=== PATIENT | male | born 1935 | race Caucasian/White ===

== ENCOUNTER 2020-09-01 17:57 | Emergency (ER) | payer OTHER ==
[~2020-09-01] VITALS: Ht 162.6 cm; Wt 64.0 kg
[2020-09-01] MEDS ORDERED: TRAMADOL HYDROC50 MG PO (21:31)
[2020-09-01 21:38] VITALS: BP 152/70
== END 2020-09-01 21:49 | disposition home or self-care (01) | DRG 563 ==
LOC: ED 17:57
DX: S42.032A Displaced fracture of lateral end of left clavicle, initial encounter for closed fracture (principal); S20.212A Contusion of left front wall of thorax, initial encounter; W01.0XXA Fall on same level from slipping, tripping and stumbling without subsequent striking against object, initial encounter; Y92.009 Unspecified place in unspecified non-institutional (private) residence as the place of occurrence of the external cause

== ENCOUNTER 2020-09-04 08:31 | Emergency (ER) | payer OTHER ==
[~2020-09-04] VITALS: Ht 162.6 cm; Wt 65.9 kg
[~2020-09-04 08:31] MED LIST: TRAMADOL HYDROC50 MG PO
[2020-09-04] MEDS ORDERED: ATENOLOL25 MG PO (09:00)
[2020-09-04] MEDS ORDERED: ASPIRIN ENTERIC81 MG PO (09:00)
[2020-09-04] MEDS ORDERED: DONEPEZIL HCL10 M1 PO (09:01)
[2020-09-04] MEDS ORDERED: FINASTERIDE5 MG PO (09:02)
[2020-09-04] MEDS ORDERED: LORATADINE10 M1 PO (09:02)
[2020-09-04] MEDS ORDERED: SIMVASTATIN10 MG PO (09:03)
[2020-09-04] MEDS ORDERED: TERAZOSIN5 MG PO (09:04)
[2020-09-04] MEDS ORDERED: WARFARIN5 MG PO (09:04)
[2020-09-04] MEDS ORDERED: TRAMADOL HYDROC50 M1 PO (09:05)
[2020-09-04 09:48] LABS: HEMATOCRIT 39.7 % (39.0-50.0); HEMOGLOBIN 12.3 g/dl (14.0-18.0); IMMATURE GRANULOCYTES 0.2 % (0.0-5.0); MEAN CELL VOLUME 95.4 fL CALC (80.0-100.0); MEAN CORPUSCULAR HGB 29.6 pG CALC (26.0-32.0); NEUT# 7.21 thou/uL (1.82-7.42); RED BLOOD COUNT 4.16 mill/uL (4.70-6.10); RED CELL DISTRI WIDTH 14.3 % (11.5-15.5)
[2020-09-04 10:01] LABS: ALKALINE PHOSPHATASE 56 u/l (38-126); AMYLASE 53 u/l (30-110); ANION GAP 10 (6-22 (CALC)); BILIRUBIN, TOTAL 0.8 mg/dL (0.0-1.4); BUN 26 mg/dL (8-23); BUN/CREATININE RATIO 23 (12-20 (CALC)); CARBON DIOXIDE 26 mmol/l (22-30); CHLORIDE 103 mmol/l (95-108); CREATININE 1.1 mg/dL (0.7-1.3); GFR > 60 ML/MIN (>=60 (CALC)); GFR FOR AFR.AMER. > 60 ML/MIN (>=60 (CALC)); LIPASE 38 u/l (23-300); POTASSIUM 3.9 mmol/l (3.5-5.1); SGOT/AST 27 u/l (19-48); SODIUM 134 mmol/l (137-146); TOTAL PROTEIN 6.6 g/dL (6.3-8.2)
[2020-09-04] MEDS ORDERED: TAM75CAP PO (12:19)
[2020-09-04] MEDS ORDERED: ZITHROMAX250 MG PO (12:19)
[2020-09-04 12:46] VITALS: BP 122/58
--- NOTE | 2020-09-06 09:12 | NUR ---
BLOOD CULTURE RESULTS CALLED . / VIALS GROWING GRAM (+) COCCI. GIVEN THE PATIENTS SYMPTOMS AND LABS WOULD LIKE TO WAIT FOR THE FINAL RESULTS.
--- NOTE | 2020-09-07 11:03 | NUR ---
FINAL BLOOD CULTURE RESULTS OF STAPH HOMINIS GROWING IN 4/[address] ALLEN. MOST LIKELY A CONTAMINANT.
== END 2020-09-04 13:10 | disposition home or self-care (01) | DRG 562 ==
LOC: ED 08:31
DX: S42.032A Displaced fracture of lateral end of left clavicle, initial encounter for closed fracture (principal); J10.00 Influenza due to other identified influenza virus with unspecified type of pneumonia; M54.2 Cervicalgia; M25.552 Pain in left hip; I10 Essential (primary) hypertension; W19.XXXA Unspecified fall, initial encounter; Z20.822 Contact with and (suspected) exposure to COVID-19

== ENCOUNTER 2021-12-23 03:38 | Emergency (ER) | payer OTHER ==
[~2021-12-23] VITALS: Ht 162.6 cm; Wt 72.0 kg
[~2021-12-23 03:38] MED LIST changes: +ASPIRIN ENTERIC81 MG PO; +ATENOLOL25 MG PO; +DONEPEZIL HCL10 M1 PO; +FINASTERIDE5 MG PO; +LORATADINE10 M1 PO; +SIMVASTATIN10 MG PO; +TAM75CAP PO; +TERAZOSIN5 MG PO; +TRAMADOL HYDROC50 M1 PO; +WARFARIN5 MG PO; +ZITHROMAX250 MG PO
[2021-12-23] MEDS ORDERED: MEMANTINE HYDRO10 MG (04:13)
[2021-12-23] MEDS ORDERED: AQUABASE EX (04:14)
[2021-12-23] MEDS ORDERED: TAMSULOSIN HCL0.4 MG PO (04:17)
[2021-12-23] MEDS ORDERED: CALCIUM 600600 M1 (04:19)
[2021-12-23] MEDS ORDERED: B-12500 MC2 (04:20)
[2021-12-23 05:09] LABS: HEMATOCRIT 40.9 % (39.0-50.0); HEMOGLOBIN 13.2 g/dl (14.0-18.0); IMMATURE GRANULOCYTES 0.2 % (0.0-5.0); MEAN CELL VOLUME 92.7 fL CALC (80.0-100.0); MEAN CORPUSCULAR HGB 29.9 pG CALC (26.0-32.0); MEAN CORPUSCULAR HGB CONC 32.3 g/dL CAL (32.0-36.0); NEUT# 9.56 thou/uL (1.82-7.42); RED BLOOD COUNT 4.41 mill/uL (4.70-6.10); RED CELL DISTRI WIDTH 12.7 % (11.5-15.5)
[2021-12-23 05:25] LABS: URINE BILIRUBIN - DIPSTICK NEGATIVE (NEGATIVE); URINE BLOOD DIPSTICK MODERATE (NEGATIVE); URINE COLOR YELLOW; URINE GLUCOSE - DIPSTICK NEGATIVE (NEGATIVE); URINE KETONE 15 mg/dL (NEGATIVE); URINE LEUK ESTERASE NEGATIVE (NEGATIVE); URINE PH 5.5 (4.5-8.0); URINE PROTEIN - DIPSTICK NEGATIVE (NEG-TRACE); URINE SPECIFIC GRAVITY 1.025; URINE UROBILINOGEN - DIPSTICK 0.2 E.U./dL (0.2)
[2021-12-23 05:26] LABS: INTERNATIONAL NORMALIZED RATIO 4.1 RATIO (0.7-1.3); PROTHROMBIN TIME 39.3 SECONDS (9.0-12.5)
[2021-12-23 05:28] LABS: URINE NITRITE - DIPSTICK NEGATIVE (Negative)
[2021-12-23 05:30] LABS: ALKALINE PHOSPHATASE 72 u/l (38-126); ANION GAP 13 (6-22 (CALC)); BILIRUBIN, TOTAL 0.6 mg/dL (0.0-1.4); BUN 24 mg/dL (8-23); BUN/CREATININE RATIO 20 (12-20 (CALC)); CARBON DIOXIDE 23 mmol/l (22-30); CHLORIDE 106 mmol/l (95-108); CPK 164 u/l (52-200); CREATININE 1.2 mg/dL (0.7-1.3); GFR 57 ML/MIN (>=60 (CALC)); GFR FOR AFR.AMER. > 60 ML/MIN (>=60 (CALC)); MAGNESIUM 2.1 mg/dL (1.6-2.3); POTASSIUM 4.3 mmol/l (3.5-5.1); SGOT/AST 32 u/l (19-48); SODIUM 138 mmol/l (137-146); TOTAL PROTEIN 6.8 g/dL (6.3-8.2)
[2021-12-23 05:36] LABS: URINE SQUAMOUS EPITHELIAL CELL FEW EPI/hpf (0-FEW)
[2021-12-23] MEDS ORDERED: TRAMADOL HCL50 MG PO (06:11)
[2021-12-23 06:25] VITALS: BP 135/66
== END 2021-12-23 06:25 | disposition home or self-care (01) | DRG 999 ==
LOC: ED 03:38
PROVIDERS: Family Medicine
DX: S42.102A Fracture of unspecified part of scapula, left shoulder, initial encounter for closed fracture (principal); S22.32XA Fracture of one rib, left side, initial encounter for closed fracture; S50.12XA Contusion of left forearm, initial encounter; S50.312A Abrasion of left elbow, initial encounter; F03.90 Unspecified dementia, unspecified severity, without behavioral disturbance, psychotic disturbance, mood disturbance, and anxiety; I10 Essential (primary) hypertension; E78.00 Pure hypercholesterolemia, unspecified; W06.XXXA Fall from bed, initial encounter; Y92.003 Bedroom of unspecified non-institutional (private) residence as the place of occurrence of the external cause; Z79.01 Long term (current) use of anticoagulants

== ENCOUNTER 2021-12-25 04:23 | Emergency (ER) | payer OTHER ==
[~2021-12-25] VITALS: Ht 162.6 cm; Wt 82.0 kg
[~2021-12-25 04:23] MED LIST changes: +AQUABASE EX; +B-12500 MC2; +CALCIUM 600600 M1; +MEMANTINE HYDRO10 MG; +TAMSULOSIN HCL0.4 MG PO; +TRAMADOL HCL50 MG PO
[2021-12-25 04:26] VITALS: BP 147/76
[2021-12-25 04:30] VITALS: BP 146/71
[2021-12-25] MEDS ORDERED: LORTAB5 PO (04:41)
[2021-12-25] MEDS ORDERED: MIRALAX17 GM PO (04:41)
[2021-12-25 04:45] VITALS: BP 146/71
== END 2021-12-25 05:00 | disposition home or self-care (01) | DRG 561 ==
LOC: ED 04:23
DX: S22.32XD Fracture of one rib, left side, subsequent encounter for fracture with routine healing (principal); S42.102D Fracture of unspecified part of scapula, left shoulder, subsequent encounter for fracture with routine healing; T14.8XXD Other injury of unspecified body region, subsequent encounter; I10 Essential (primary) hypertension; E78.00 Pure hypercholesterolemia, unspecified; F03.90 Unspecified dementia, unspecified severity, without behavioral disturbance, psychotic disturbance, mood disturbance, and anxiety; W19.XXXD Unspecified fall, subsequent encounter; Z95.0 Presence of cardiac pacemaker

== ENCOUNTER 2022-03-07 13:41 | Inpatient (IN) | payer OTHER, MEDICARE ==
[2022-03-07] VITALS (17 sets, daily range): BP systolic 92–125; BP diastolic 49–89
[~2022-03-07] VITALS: Ht 162.6 cm; Wt 68.0 kg
[~2022-03-07 13:41] MED LIST changes: -B-12500 MC2; +B-12500 MC2 PO; -CALCIUM 600600 M1; +CALCIUM 600600 M1 PO; +LORTAB5 PO; -MEMANTINE HYDRO10 MG; +MEMANTINE HYDRO10 MG PO; +MIRALAX17 GM PO; -SIMVASTATIN10 MG PO; +SIMVASTATIN40 MG PO
--- NOTE | 2022-03-07 13:43 | NUR ---
PT TO ROOM VIA WC. FAMILY AT BEDSIDE
[2022-03-07 14:30] LABS: HEMOGLOBIN 13.3 g/dl (14.0-18.0); IMMATURE GRANULOCYTES 0.2 % (0.0-5.0); MEAN CELL VOLUME 95.9 fL CALC (80.0-100.0); MEAN CORPUSCULAR HGB 30.4 pG CALC (26.0-32.0); MEAN CORPUSCULAR HGB CONC 31.7 g/dL CAL (32.0-36.0); RED BLOOD COUNT 4.38 mill/uL (4.70-6.10); RED CELL DISTRI WIDTH 13.9 % (11.5-15.5)
[2022-03-07 14:31] LABS: URINE BLOOD DIPSTICK MODERATE (NEGATIVE); URINE COLOR YELLOW; URINE GLUCOSE - DIPSTICK NEGATIVE (NEGATIVE); URINE KETONE NEGATIVE (NEGATIVE); URINE LEUK ESTERASE NEGATIVE (NEGATIVE); URINE PROTEIN - DIPSTICK NEGATIVE (NEG-TRACE); URINE SPECIFIC GRAVITY >=1.030; URINE UROBILINOGEN - DIPSTICK 0.2 E.U./dL (0.2)
[2022-03-07 14:34] LABS: URINE BILIRUBIN - DIPSTICK SMALL (NEGATIVE); URINE NITRITE - DIPSTICK NEGATIVE (Negative)
[2022-03-07 15:00] LABS: INTERNATIONAL NORMALIZED RATIO 2.1 RATIO (0.7-1.3); PROTHROMBIN TIME 21.3 SECONDS (9.0-12.5)
[2022-03-07 15:02] LABS: ALBUMIN 3.9 g/dL (3.2-5.0); BILIRUBIN, TOTAL 0.7 mg/dL (0.0-1.4); CREATININE 1.5 mg/dL (0.7-1.3); POTASSIUM 4.5 mmol/l (3.5-5.1); TOTAL PROTEIN 6.7 g/dL (6.3-8.2)
[2022-03-07] MEDS ORDERED: WARFARIN SODIU2.5 MG PO (15:36)
--- NOTE | 2022-03-07 17:54 | NUR ---
Pt was stable in the ER and did not have any complaints. The patient's nephew was with him in the ER and went with him to the floor. Bedside report given. Pt stable. Chart dropped off, tele on pt. Oxygen connected.
--- NOTE | 2022-03-07 18:46 | NUR ---
PT ORINETED TO ROOM. PT NEPHEW ABLE TO ANSWER QUESTIONS PT DEMENTIA. A/OX2 ASSESSMENT AND VS COMPLETED. HEART RHYHM ON TELE RESPIRATION UNLABORED. BOWEL SOUNDS HYPOACTIVE. IV SITE NOTED. PT ATE PUDDING . PT DEMONOSTRATED HOW TO USE CALL LIGHT DENIES ADDITIONAL NEEDS ALLS AFETY PRECAUTIONS IN PLACE.
--- NOTE | 2022-03-07 19:15 | NUR ---
PATIENT RESTING IN BED. NO DISTRESS NOTED. ALERT TO PERSON AND PLACE. VSS. SUPPLEMENTAL O2 IN PLACE VIA NC @ 2LPM. FALL PRECAUTIONS IN PLACE CALL HUDSON WITHIN REACH.
[2022-03-08] VITALS (8 sets, daily range): BP systolic 96–130; BP diastolic 55–83
--- NOTE | 2022-03-08 04:03 | NUR ---
ALERTD BY ED [employer] TECH THAT PATIENT HAD A CHANGE IN RYTHMN FROM PACED NSR TO PACED ST. PATIENT RESTING IN BED.NO CHANGE IN MENTATION. NO DISTRESS NOTED. PATIENT DENIES ANY PAIN OR DISCOMFORT. FALL PRECAUTIONS IN PLACE. BED ALARM MAINTAINED. CALL HUDSON WITHIN REACH.
[2022-03-08 06:28] LABS: HEMATOCRIT 39.5 % (39.0-50.0); HEMOGLOBIN 12.6 g/dl (14.0-18.0); MEAN CELL VOLUME 94.5 fL CALC (80.0-100.0); MEAN CORPUSCULAR HGB 30.1 pG CALC (26.0-32.0); MEAN CORPUSCULAR HGB CONC 31.9 g/dL CAL (32.0-36.0); NEUT# 2.02 thou/uL (1.82-7.42); RED BLOOD COUNT 4.18 mill/uL (4.70-6.10); RED CELL DISTRI WIDTH 13.5 % (11.5-15.5)
[2022-03-08 07:14] LABS: ALBUMIN 3.3 g/dL (3.2-5.0); ALKALINE PHOSPHATASE 50 u/l (38-126); ANION GAP 11 (6-22 (CALC)); BUN 22 mg/dL (8-23); BUN/CREATININE RATIO 18 (12-20 (CALC)); C-REACTIVE PROTEIN 0.6 mg/dL (0-0.9); CARBON DIOXIDE 25 mmol/l (22-30); CHLORIDE 108 mmol/l (95-108); CREATININE 1.2 mg/dL (0.7-1.3); GFR FOR AFR.AMER. > 60 ML/MIN (>=60 (CALC)); GFR OTHER RACES 57 ML/MIN (>=60 (CALC)); POTASSIUM 4.4 mmol/l (3.5-5.1); SGOT/AST 28 u/l (19-48); SODIUM 140 mmol/l (137-146); TOTAL PROTEIN 5.7 g/dL (6.3-8.2)
[2022-03-08 07:16] LABS: BILIRUBIN, TOTAL 0.3 mg/dL (0.0-1.4)
--- NOTE | 2022-03-08 08:43 | NUR ---
PT RESTING IN FOWLERS POSITION. A/OX3 HARD OF HEARING ASSESSNENT AND VS COMPLETED,HEART RHYHTM ST ON TELE .PACER. RESPIRATIONS UNLABORED. PT BOWEL SOUNDS ACTIVE. IV SITE NOTED. PT DENIES ADDITIONAL NEEDS AT THE TIME ALL SAFETY PRECAUTIONS IN PLACE. MONITOR BP AND HR.
[2022-03-08] MEDS ORDERED: ALLERGY RELF10 M3 PO (09:01)
--- NOTE | 2022-03-08 10:22 | NUR ---
PT SPSIS RISK ON INTERVENTIONS [place] NOTIFIED PT IS ON FLUIDS AND RECIEVED ANTIBITOICS DOWN STAIRS IN ER. WILL RECIEVE MORE PER EMAR.
--- NOTE | 2022-03-08 12:11 | NUR ---
PT RESTING IN HIGH FOWLERS POSITION. PT TOLERATING FOOD WELL OFF OXYGEN . RA SATS MID 90'S
[2022-03-08 12:50] LABS: INTERNATIONAL NORMALIZED RATIO 2.2 RATIO (0.7-1.3); PROTHROMBIN TIME 22.3 SECONDS (9.0-12.5)
--- NOTE | 2022-03-08 16:06 | NUR ---
PT SHOWS NO SIGNS OF DISTRESS. PT RESTING IN HIGH FOWLERS POSITON. PT DENIES ADDITIONAL NEEDS.
--- NOTE | 2022-03-08 19:49 | NUR ---
PATIENT RESTING IN BED. ALERT AND ORIENTED TO PERSON AND PLACE. NO DISTRESS NOTED. PATIENT DENIES ANY PAIN AND/OR DISCOMFORT AT THIS TIME. HEAD TO TOE ASSESSMENT COMPLETED; SEE DOCUMENTATION. CALL HUDSON USE AND FALL PRECAUTION EDUCATION REEINFORCED. BED ALARM MAINTAINED.
--- NOTE | 2022-03-08 22:31 | NUR ---
ROOM AIR SPO2 92%
--- NOTE | 2022-03-08 23:15 | NUR ---
ROOM AIR SPO2 92% WITH CONTINUOUS PULXE OX IN PLACE
[2022-03-09] VITALS (8 sets, daily range): BP systolic 128–152; BP diastolic 66–74
--- NOTE | 2022-03-09 00:37 | NUR ---
PATIENT OBSERVED SLEEPING. NO DISTRESS NOTED. BED ALARM MAINTAINED. FALL PRECAUTIONS IN PLACE. CALL HUDSON WITHIN REACH.
--- NOTE | 2022-03-09 04:46 | NUR ---
PATIENT RESTING IN BED. NO DISTRESS NOTED. NO COMPLAINTS AND/OR DISCOMFORT AT THIS TIME. BED ALARM IN PLACE. FALL PRECAUTIONS MAINTAINED. CALL HUDSON WITHIN REACH.
[2022-03-09 06:25] LABS: HEMATOCRIT 40.4 % (39.0-50.0); HEMOGLOBIN 13.1 g/dl (14.0-18.0); IMMATURE GRANULOCYTES 0.2 % (0.0-5.0); MEAN CELL VOLUME 92.4 fL CALC (80.0-100.0); MEAN CORPUSCULAR HGB CONC 32.4 g/dL CAL (32.0-36.0); NEUT# 2.61 thou/uL (1.82-7.42); RED BLOOD COUNT 4.37 mill/uL (4.70-6.10); RED CELL DISTRI WIDTH 13.6 % (11.5-15.5)
[2022-03-09 06:48] LABS: INTERNATIONAL NORMALIZED RATIO 2.3 RATIO (0.7-1.3); PROTHROMBIN TIME 22.7 SECONDS (9.0-12.5)
[2022-03-09 06:51] LABS: ALBUMIN 3.2 g/dL (3.2-5.0); ALKALINE PHOSPHATASE 56 u/l (38-126); ANION GAP 10 (6-22 (CALC)); BILIRUBIN, TOTAL 0.2 mg/dL (0.0-1.4); BUN 25 mg/dL (8-23); BUN/CREATININE RATIO 21 (12-20 (CALC)); CARBON DIOXIDE 28 mmol/l (22-30); CHLORIDE 108 mmol/l (95-108); CREATININE 1.2 mg/dL (0.7-1.3); GFR FOR AFR.AMER. > 60 ML/MIN (>=60 (CALC)); GFR OTHER RACES 57 ML/MIN (>=60 (CALC)); MAGNESIUM 2.1 mg/dL (1.6-2.3); POTASSIUM 3.9 mmol/l (3.5-5.1); SGOT/AST 35 u/l (19-48); SODIUM 142 mmol/l (137-146); TOTAL PROTEIN 5.7 g/dL (6.3-8.2)
--- NOTE | 2022-03-09 07:00 | NUR ---
RECEIVE REPORT FROM KORINA TAY.
--- NOTE | 2022-03-09 08:00 | NUR ---
PATIENT ALERT AND ORIENTED X3. DOES NOT ACUTE RESPIRATORY DISTRESS AT THIS TIME. PASTIENT DOES NOT REFER PAIN OR DISCOMFORT AT THIS TIME. PATIENT IS EDUCATED ABOUD MEDICATIONS AND NURSING PLAN FOR TODAY. PT REFER UNDERSTAND. SAFETY AND FALL PRECAUTIONS IN PLACE. CALL LIGHT WITHIN REACH.
--- NOTE | 2022-03-09 08:12 | NUR ---
S: GUILLERMINA PACHECO is a 86 M who presents with bloodstream infection. He has a history of hypertension, prostate problems, arrythmia, high cholesterol, dementia. All medications in patient's chart were reviewed. O: VS: BP 148/66 mmHg, P 60 beats/min, RR 20 breaths/min, T 96.6 F W 68 kg, HT 64 inches, Scr= 1.2 mg/dL, CrCl= 41.7 ml/min A: Blood culture preliminary results from 03/07/2022 shows gram positive cocci in 3/4 sets. P: Patient is on azithromycin 500mg iv q24h and ceftriaxone 1g iv q24h. Vancomycin ordered for pharmacy to dose. Start Vancomycin 1g IV Q24H. Vancomycin trough is drawn before the 4th dose on 03/12/2022 0800 . Vancomycin goal trough is between <15-20 mcg/ml>. Pharmacy will follow and or advise on antibiotics use as needed.
--- NOTE | 2022-03-09 12:00 | NUR ---
PATIENT AWAKE AND ALERT IN SITTING POSTION. NEW IV FLUIDS HANGED. CALL LIGHT WITHIN REACH, BED IN LOWEST POSITION, BED RAILS UP X 2, AND BED WHEELS LOCKED. PATIENT TURNED AND REPOSITIONED TO RIGHT SIDE.
--- NOTE | 2022-03-09 12:12 | NUR ---
PATIENT RESTING IN BED. STABLE AT THIS TIME
--- NOTE | 2022-03-09 16:00 | NUR ---
PATIENT ALERT AND AWAKE. IV MAINTENANCE RUNNING, IV STILL INTACT. CALM AND APPROPRIATE BEHAVIOR.
--- NOTE | 2022-03-09 16:15 | NUR ---
PRELIMINARY BLOOD CULTURE RESULTS SHOW 3/4 VIALS GROWING GRAM (+) COCCI. CALLED TO . NEW ORDER FOR VANCOMYCIN PHARMACY TO DOSE.
--- NOTE | 2022-03-09 19:40 | NUR ---
PATIENT RESTING IN BED. ALERT TO PERSON AND PLACE. NO DISTRESS NOTED. PATIENT HAS NO COMPLAINTS AT THIS TIME AND DENIES ANY DISCOMFORT. AIRBORNE PRECAUTION MAINTAINED. BED ALARM ON. FALL PRECAUTIONS IN PLACE. CALL HUDSON WITHIN REAch.
[2022-03-10] VITALS (7 sets, daily range): BP systolic 121–173; BP diastolic 68–86
--- NOTE | 2022-03-10 00:19 | NUR ---
PATIENT SEEN ATTEMPTING TO GET OUT OF BED. PATIENT REMOVED TELEMONITOR, GOWN AND IV CATHETER. DISORIENTED TO PLACE AND TIME. PATIENT PLACED BACK IN BED, CLEANED UP WITH AIDE'S ASSISTANCE. PATIENT PLACED BACK ON BED ALARM. IV REINSERTED AND INFUSING. CALL HUDSON WITHIN REACH.
[2022-03-10 05:45] LABS: HEMATOCRIT 41.6 % (39.0-50.0); HEMOGLOBIN 13.5 g/dl (14.0-18.0); IMMATURE GRANULOCYTES 0.2 % (0.0-5.0); MEAN CELL VOLUME 93.3 fL CALC (80.0-100.0); MEAN CORPUSCULAR HGB 30.3 pG CALC (26.0-32.0); MEAN CORPUSCULAR HGB CONC 32.5 g/dL CAL (32.0-36.0); NEUT# 2.38 thou/uL (1.82-7.42); RED BLOOD COUNT 4.46 mill/uL (4.70-6.10); RED CELL DISTRI WIDTH 13.3 % (11.5-15.5)
[2022-03-10 06:42] LABS: ANION GAP 9 (6-22 (CALC)); BUN 22 mg/dL (8-23); BUN/CREATININE RATIO 24 (12-20 (CALC)); CARBON DIOXIDE 25 mmol/l (22-30); CHLORIDE 108 mmol/l (95-108); CREATININE 0.9 mg/dL (0.7-1.3); GFR FOR AFR.AMER. > 60 ML/MIN (>=60 (CALC)); GFR OTHER RACES > 60 ML/MIN (>=60 (CALC)); POTASSIUM 3.9 mmol/l (3.5-5.1); SODIUM 138 mmol/l (137-146)
--- NOTE | 2022-03-10 07:59 | NUR ---
PT LAYING IN BED. A&O TO SELF AND PLACE; REORIENTED TO CURRENT TIME/DATE. CLEAR/DIMINISHED BREATH SOUNDS UPON AUSCULTATION. ACTIVE BOWEL SOUNDS X4 QUADRANTS. PT ASSISTED TO BSC, PT NOTED TO BE VERY WEAK. PT TO BE CONSULTED. BM NOTED. IV HEALTHY AND PATENT WITH IVF INFUSING PER MAR ORDER. CELEBRITY MANAGER IN PLACE; PACE. ASSESSMENT COMPLETED. DISCUSSED POC. REINFORCEMENT NEEDED. CALL LIGHT WITHIN REACH, BED ALARM IN PLACE FOR SAFETY. ISOLATION PRECAUTIONS IN PLACE.
--- NOTE | 2022-03-10 09:24 | NUR ---
DR CHAKRABORTY AT BEDSIDE FOR ASSESSMENT AND DISCUSSION OF POC
[2022-03-10 13:38] LABS: INTERNATIONAL NORMALIZED RATIO 2.8 RATIO (0.7-1.3); PROTHROMBIN TIME 27.5 SECONDS (9.0-12.5)
--- NOTE | 2022-03-10 14:39 | NUR ---
pt sitting in bed eating candy brought from home. pt encouraged to eat lunch, pt refusing lunch at this time. abx initiated and scheduled coumadin given dose verified with pharmacy in correlation with inr results, ok to give. pt denies any needs at this time. bed alarm in place for safety. call light within reach.
--- NOTE | 2022-03-10 15:59 | NUR ---
PT APPEARS TO BE SLEEPING IN BED. NO DISTRESS NOTED. RR EVEN AND UNLABORED. REMAINS ON RA. CALL LIGHT WITHIN REACH. BED ALARM FOR SAFETY.
--- NOTE | 2022-03-10 20:10 | NUR ---
PT AMBULATING FROM BATHROOM WITH OFFICER CAPTAIN ASSISTANCE, PT HAD SHOWERED. NO SIGNS OF DISTRESS NOTED, RESP EVEN AND UNLABORED. SPO2 85 ON RA, PT PLACED ON 02 1L NC, INCREASED TO 91%. PT ALERT TO SELF AND PLACE, DISCUSSED POC, ASSISTED PT TO BED, SKIN INTACT, NO EDEMA. BED ALARM FOR SAFETY, ASSESSMENT COMPLETED, CALL LIGHT IN REACH,CONTINUE TO MONITOR.
--- NOTE | 2022-03-10 23:57 | NUR ---
PT RESTING IN BED WITH EYES CLOSED, NO SIGNS OF DISTRESS NOTED, RESP EVEN AND UNLABORED. BED ALARM FOR SAFETY, CALL LIGHT IN REACH,CONTINUE TO MONITOR.
[2022-03-11] VITALS (7 sets, daily range): BP systolic 125–143; BP diastolic 53–92
--- NOTE | 2022-03-11 04:10 | NUR ---
PT RESTING IN BED WATCHING TV, AM VITALS OBTAINED, PT VOICES NO NEEDS OR COMPLAINTS AT THIS TIME, BED ALARM FOR SAFETY, CALL LIGHT IN REACH, CONTINUE TO MONITOR.
[2022-03-11 05:22] LABS: HEMATOCRIT 39.6 % (39.0-50.0); HEMOGLOBIN 13.3 g/dl (14.0-18.0); IMMATURE GRANULOCYTES 0.3 % (0.0-5.0); MEAN CELL VOLUME 91.2 fL CALC (80.0-100.0); MEAN CORPUSCULAR HGB 30.6 pG CALC (26.0-32.0); MEAN CORPUSCULAR HGB CONC 33.6 g/dL CAL (32.0-36.0); NEUT# 1.97 thou/uL (1.82-7.42); RED BLOOD COUNT 4.34 mill/uL (4.70-6.10); RED CELL DISTRI WIDTH 13.1 % (11.5-15.5)
[2022-03-11 05:39] LABS: INTERNATIONAL NORMALIZED RATIO 3.4 RATIO (0.7-1.3); PROTHROMBIN TIME 32.9 SECONDS (9.0-12.5)
[2022-03-11 05:48] LABS: CARBON DIOXIDE 26 mmol/l (22-30)
[2022-03-11 05:59] LABS: ALKALINE PHOSPHATASE 54 u/l (38-126); ANION GAP 9 (6-22 (CALC)); BUN 22 mg/dL (8-23); BUN/CREATININE RATIO 22 (12-20 (CALC)); CHLORIDE 107 mmol/l (95-108); GFR FOR AFR.AMER. > 60 ML/MIN (>=60 (CALC)); GFR OTHER RACES > 60 ML/MIN (>=60 (CALC)); POTASSIUM 3.6 mmol/l (3.5-5.1); SGOT/AST 46 u/l (19-48); SODIUM 138 mmol/l (137-146); TOTAL PROTEIN 5.4 g/dL (6.3-8.2)
[2022-03-11 06:02] LABS: BILIRUBIN, TOTAL 0.3 mg/dL (0.0-1.4)
--- NOTE | 2022-03-11 06:45 | NUR ---
RECEIVED REPORT FROM FLORENCIA LAU.
--- NOTE | 2022-03-11 08:20 | NUR ---
PT SITTING ON BED, HAVING BREAKFAST: ALERT TO SELF ONLY. EVEN AND UNLABORED RESPIRATIONS; CLEAR UPPER LOBES, DIMINISHED ON BASES. TELEMETRY IN PLACE WITH LAST READING PACED-60. IV SITE HEALTHY AND PATENT. ACTIVE BOWEL SOUNDS X4 QUADRANTS. CAMERA MONITOR AND BED ALARM ACTIVE. SAFETY PRECAUTIONS IN PLACE WITH CALL LIGHT IN REACH.
--- NOTE | 2022-03-11 12:24 | NUR ---
PT SITTING ON BED HIGH FOWLERS HAVING LUNCH. NO DISTRESS OR PAIN NOTED. EMPTIED URINAL CONTENTS; 200 CC OF CLEAR YELLOW URINE. CAMERA MONITOR AND BED ALARM ACTIVE. SAFETY PRECAUTIONS IN PLACE WITH CALL LIGHT IN REACH.
--- NOTE | 2022-03-11 16:25 | NUR ---
PT SITTING ON BED LOW FOWLERS POSITION. NO DISTRESS OR PAIN NOTED. NO NEEDS AT THE TIME. CAMERA MONITOR AND BED ALARM ACTIVE. SAFETY PRECAUTIONS IN PLACE WITH CALL LIGHT IN REACH.
--- NOTE | 2022-03-11 20:20 | NUR ---
PT RESTING IN BED, NO SIGNS OF DISTRESS NOTED, RESP EVEN AND UNLABORED. PT SATS 92% ON RA, PT ALERT AND ORIENTED X3, DISCUSSED POC, VERBALIZED UNDERSTANDING, VOICES NO NEEDS OR COMPLAINTS AT THIS TIME, ASSESSMENT COMPLETED, CALL LIGHT IN REACH,CONTINUE TO MONITOR.
[2022-03-12] VITALS (7 sets, daily range): BP systolic 127–164; BP diastolic 64–90
--- NOTE | 2022-03-12 | NUR ---
PT ASSISTED TO BATHROOM, STATES HE HAS TO HAVE A BM. NO BM NOTED, ASSISTED PT BACK TO BED. PT MAINTAING SPO2 > 90 ON RA. CALL LIGHT IN REACH, BED ALARM FOR SAFETY, CONTINUE TO MONITOR.
--- NOTE | 2022-03-12 03:56 | NUR ---
PT RESTING IN BED NO SIGNS OF DISTRESS NOTED, RESP EVEN AND UNLABORED VOICES NO NEEDS OR COMPLAINTS AT THIS TIME. CALL LIGHT IN REACH,CONTINUE TO MONITOR.
--- NOTE | 2022-03-12 06:35 | NUR ---
RECEIVED REPORT FROM FLORENCIA LAU.
[2022-03-12 06:57] LABS: INTERNATIONAL NORMALIZED RATIO 2.6 RATIO (0.7-1.3); PROTHROMBIN TIME 25.2 SECONDS (9.0-12.5)
--- NOTE | 2022-03-12 08:20 | NUR ---
PT ASSISTED TO BSC. PT ALERT TO SELF. EVEN AND UNLABORED RESPIRATIONS; CLEAR UPPER LUNG SOUNDS, DIMINISHED BASES, ON ESME. TELEMETRY IN PLACE. IV SITE HEALTHY AND PATENT. ACTIVE BOWEL SOUNDS X4 QUADRANTS. CAMERA MONITOR AND BED ALARM ACTIVE. SAFETY PRECAUTIONS IN PLACE WITH CALL LIGHT IN REACH.
--- NOTE | 2022-03-12 12:00 | NUR ---
PT ON BED WATCHING TV. NO DISTRESS OR PAIN NOTED. REPLACE PULSE OXIMETER READER SINCE IT CAME OFF FINGER. CAMERA MONITOR AND BED ALARM ACTIVE. SAFETY PRECAUTIONS IN PLACE WITH CALL LIGHT IN REACH.
--- NOTE | 2022-03-12 16:16 | NUR ---
PT ON BED WATCHING TV. NO DISTRESS NOTED. PT DENIES PAIN AT THIS MOMENT. PHYSICAL THERAPY IN THE ROOM WITH PT AT THIS TIME. CAMERA AND BED ALARM ACTIVE. SAFETY PRECAUTIONS IN PLACE WITH CALL LIGHT IN REACH.
--- NOTE | 2022-03-12 19:30 | NUR ---
PATIENT RESTING IN BED WITH HOB ELEVATED. AWAKE ALERT AND ORIENTED TO PERSON AND PLACE. PATIENT APPEARS VERY WEAK AT THIS TIME. PATIENT IS ON ISOLATION FOR COVID. TELE MONITOR IN PLACE-LAST READING WAS PACED WITH O2 SAT OF 94% ON RA. IVF NS PATENT AND INFUSING VIA RAC SITE AT 50CC/HR. SITE IS HEALTHY AT THIS TIME. BED ALARM IN PLACE FOR PATIENT SAFETY. CALL LIGHT IN REACH. WILL CONT TO MONITOR.
--- NOTE | 2022-03-12 23:40 | NUR ---
PATIENT RESTINGI N BED WITH EYES CLOSED. EASY TO AROUSE, MEDICATED WITH COUMADIN 2.5MG PO ORDERED. IVF PATENT AND INFUSING VIA RAC SITE AT 50CC/HR. ,SITE REMAINS HEALTHY. TELE MONITOR IN PLACE-O2 SAT IS 96% ON RA. BED ALARM IN PLACE FOR PATIENT SAFETY. CALL LIGHT IN REACH. WILL CONT TO MONITOR.
[2022-03-13] VITALS (7 sets, daily range): BP systolic 121–167; BP diastolic 58–84
--- NOTE | 2022-03-13 04:00 | NUR ---
PATIENT SITTING UP IN BED WITH EYES CLOSED. RESP ARE EVEN AND UNLABORED. IVF PATENT AND INFUSING VIA RAC SITE AT 50CC/HR. TELE MONITOR IN PLACE READING PACED. O2 VIA NASAL CANNULA AT 2LPM. BED ALARM IN PLACE FOR PATIENT SAFETY. CALL LIGHT IN REACH. WILL CONT TO MONITOR.
--- NOTE | 2022-03-13 04:28 | NUR ---
RECIEVED CALL FROM ER-O2 SAT IN THE 80'S. O2 VIA NASAL CANNULA APPLIED AT 2LPM-O2 SATS UP TO THE 90'S. NO COMPLAINTS AT THIS TIME. TELE MONITOR IN PLACE. BED ALARM IN PLACE FOR PATIENT SAFETY. CALL LIGHT IN REACH. WILL CONT TO MONITOR.
--- NOTE | 2022-03-13 07:00 | NUR ---
REPORT RECEIVED FROM [employer] SECRETARY PT RESTING IN BED. BREATHING EVEN AND UNLABORED. NO DISTRESS NOTED. FALL/SAFTEY PRECAUTION IN PLACE. CALL LIGHT WITHIN REACH
[2022-03-13 07:04] LABS: HEMATOCRIT 40.9 % (39.0-50.0); HEMOGLOBIN 13.7 g/dl (14.0-18.0); MEAN CELL VOLUME 90.9 fL CALC (80.0-100.0); MEAN CORPUSCULAR HGB 30.4 pG CALC (26.0-32.0); MEAN CORPUSCULAR HGB CONC 33.5 g/dL CAL (32.0-36.0); RED BLOOD COUNT 4.5 mill/uL (4.70-6.10); RED CELL DISTRI WIDTH 13.2 % (11.5-15.5)
[2022-03-13 07:13] LABS: PROTHROMBIN TIME 20.3 SECONDS (9.0-12.5)
[2022-03-13 07:27] LABS: ANION GAP 8 (6-22 (CALC)); BUN 17 mg/dL (8-23); BUN/CREATININE RATIO 20 (12-20 (CALC)); CARBON DIOXIDE 27 mmol/l (22-30); CHLORIDE 104 mmol/l (95-108); CREATININE 0.8 mg/dL (0.7-1.3); GFR FOR AFR.AMER. > 60 ML/MIN (>=60 (CALC)); GFR OTHER RACES > 60 ML/MIN (>=60 (CALC)); POTASSIUM 3.4 mmol/l (3.5-5.1); SODIUM 136 mmol/l (137-146)
--- NOTE | 2022-03-13 09:10 | NUR ---
PT RESTING IN BED WITH O2 AT 2L VIA NC. TITRATED PT O2 DOWN TO 1L STATING 92-95%. REMOVED O2. PT NOW ON ROOM AIR. STATING ABPVE 90%. TELE NONITOR IN PLACE, CONTINOUS MONITORING PER ED. CONTINOUS SPO2 MONITORING WITH TELE. ASSESSMENT ALLOWED. PT ALERT TO PERSON, ABKE TO TELL ME FULL NAM EAND . UNABLE TO TELL ME PLACE/TIME. IV 20 RAC FLUSHED, INFUING IVF PER EMAR. ISOLATION/FALL/SAFETY PRECAUTION IN PLACE. CALL LIGHT WITHIN REACH
--- NOTE | 2022-03-13 12:10 | NUR ---
PT RESTING IN BED. BREATHING EVEN AND UNLABORED. NO DISTRESS NOTED. BED ALARM ACTIVATED. IV PATENT INFUSING IVF PER EMAR. TELE MONITOR IN PLACE, CONTINOUS MONITORING PER ED. FALL/SAFTEY PRECAUTION INPLACE. CALL LIGHT WITHIN REACH.
--- NOTE | 2022-03-13 13:32 | NUR ---
S: GUILLERMINA PACHECO is a 86 M who presents with bacteremia. He has a history of hypertension, prostate problems, arrythmia, high cholesterol and dementia. All medications in patient's chart were reviewed. O: VS: BP 135/66 mmHg, P 61bpm, RR 21bpm,T 98.3 F W 68kg, HT 64inch, Scr= 0.8 mg/dL,CrCl= 50.1ml/min Vancomycin trough = 9 mcg/ml A: Blood culture show staphylococcus hominis in 3/4 vials which is sensitive to vancomycin. P: Patient is on azithromycin and ceftriaxone. Vancomycin ordered for pharmacy to dose. Continue Vancomycin 1gm IV Q24H. Vancomycin trough is drawn before the 4th dose on 03/15/2022 at 0800. Vancomycin goal trough is between 10-15 mcg/ml. Pharmacy will follow and or advise on antibiotics use as needed.
--- NOTE | 2022-03-13 15:13 | NUR ---
pt returned via wc with dmh voluntter.
--- NOTE | 2022-03-13 15:31 | NUR ---
REORIENTATED PT BACK TO ROOM. BREATHING EVEN AND UNLABORED. ABLE TO TAKE PO MEDICATION. TELE IN PLACE. BED ALARM ACTIVATED. FALL/SAFTEY PRECAUTION IN PLACE. CALL LIGHT WITHIN REACH. IVF INFUSING PER EMAR.
--- NOTE | 2022-03-13 17:46 | NUR ---
PT RESTING IN BED WATCHING TV. PT ALERT TO SELF. SPEECH IS CLEAR. NO DISTRESS NOTED. BREATHING EVEN AN DUNLABORED. FALL/SAFTE YPRECAUTION IN PLACE. CALL LIGHT WITHIN REACH
--- NOTE | 2022-03-13 20:00 | NUR ---
PATIENT SITTING UP IN BED-AWAKE ALERT AND ORIENTED TO PERSON AND PLACE. KNOW HIS BIRTHDATE. PATIENT WITH NO COMPLAINTS AT THIS TIME. TELE MONITOR IN LACE WITH LAST READING PACED-60. IVF PATENT AND INFUSING VIA RAC SITE AT KVO RATE. O2 SAT ON ROOM AIR IS 93%. BED ALARM IN PLACE FOR PATIENT SAFETY. SAFETY PRECAUTIONS REINFORCED. CALL LIGHT IN REACH. WILL CONT TO MONITOR.
--- NOTE | 2022-03-13 23:41 | NUR ---
RESTING IN BED WITH HOB SLIGHTLY ELEVATED AND EYES CLOSED. RESPS ARE EVEN AND UNLABORED. CURRENT O2 SAT IS 93% ON RA. IVF PATENT AND INFUSING VIA RAC SITE. BED ALARM IN PLACE FOR PATIENT SAFETY. ON ISOLATION FOR COVID. CALL LIGHT IN REACH. WILL CONT TO MONITOR.
[2022-03-14] VITALS (7 sets, daily range): BP systolic 134–151; BP diastolic 59–78
--- NOTE | 2022-03-14 02:26 | NUR ---
RESTING IN BED-NO COMPLAINTS AT THIS TIME. O2 SATS ARE 93% AT THIS TIME ON ROOM AIR. BED ALARM IN PLACE FOR PATIENT SAFETY. CALL LIGHT IN REACH. WILL CNT TO MONITOR.
--- NOTE | 2022-03-14 05:47 | NUR ---
RESTING IN BED AT THIS TIME WITH EYES CLOSED. RESPS ARE EVEN AND UNLABORED. TELE MONITOR IN PLACE-LAST READING WAS PACED 60. IVF PATENT AND INFUSING VIA RAC-NS-10CC/HR. O2 SATS ARE 93% AT THIS TIME ON RA. BED ALARM IN PLACE FOR PATIENT SAFETY. CALL LIGHT IN REACH. WILL CONT TO MONITOR.
[2022-03-14 06:51] LABS: HEMATOCRIT 39.9 % (39.0-50.0); HEMOGLOBIN 13.3 g/dl (14.0-18.0); IMMATURE GRANULOCYTES 0.4 % (0.0-5.0); MEAN CELL VOLUME 90.5 fL CALC (80.0-100.0); MEAN CORPUSCULAR HGB 30.2 pG CALC (26.0-32.0); MEAN CORPUSCULAR HGB CONC 33.3 g/dL CAL (32.0-36.0); NEUT# 3.03 thou/uL (1.82-7.42); RED BLOOD COUNT 4.41 mill/uL (4.70-6.10)
--- NOTE | 2022-03-14 07:00 | NUR ---
report received from international account representativenight coordinator pt resting in bed on room air. tele in place, continous monitoring per ed. ivf infusing per emar. fall/saftey precaution in place. call light within reach
[2022-03-14 07:11] LABS: INTERNATIONAL NORMALIZED RATIO 2.2 RATIO (0.7-1.3); PROTHROMBIN TIME 21.6 SECONDS (9.0-12.5)
[2022-03-14 07:37] LABS: ALKALINE PHOSPHATASE 50 u/l (38-126); ANION GAP 9 (6-22 (CALC)); BILIRUBIN, TOTAL 0.6 mg/dL (0.0-1.4); BUN 17 mg/dL (8-23); BUN/CREATININE RATIO 19 (12-20 (CALC)); CARBON DIOXIDE 24 mmol/l (22-30); CHLORIDE 105 mmol/l (95-108); CREATININE 0.9 mg/dL (0.7-1.3); GFR FOR AFR.AMER. > 60 ML/MIN (>=60 (CALC)); GFR OTHER RACES > 60 ML/MIN (>=60 (CALC)); POTASSIUM 3.8 mmol/l (3.5-5.1); SGOT/AST 35 u/l (19-48); SODIUM 135 mmol/l (137-146); TOTAL PROTEIN 5.5 g/dL (6.3-8.2)
--- NOTE | 2022-03-14 08:27 | NUR ---
PT RESTING IN BED WITH BREAKFAST. PT ATE FULL BANANA. ENCOURAGED BREAKFAST ITEMS PT STATES JUST WANTED BANANA PT IS ALERT TO PERSON AND PLACE. PT IS ON RA STATING ABOVE 92%. IVF INFUSING PER EMAR. MEDICATED SEE EMAR. PT ABLE TO TAKE PO MEDS. STATES NO PAIN. TELE MONITORING PLACE, CONTINOUS MONITORING PER ED. AND CONTINOUS PULSE OXIMETRY. FALL/SAFTEY PRECAUTION IN PLACE. CALL LIGHT WITHIN REACH.
--- NOTE | 2022-03-14 12:20 | NUR ---
PT RESTING IN BED. NO DISTRESS NOTED. BREATHING EVEN AND UNLABROED. PT ON RA. STATING ABOVE 90%. FALL/SAFTEY PRECAUTION IN PLACE. TELE MONITOR IN PLACE. CALL LIGHT WITHIN REACH
--- NOTE | 2022-03-14 17:06 | NUR ---
PT RESTING IN BED. STATES NO PAIN. NO DISTRESS NOTED. BREATHING EVEN AND UNLABORED. FALL/SAFTEY PRECAUTION IN PLACE. CALL LIGHT WITHIN REACH. TELE MONITOR INPLACE.
--- NOTE | 2022-03-14 19:30 | NUR ---
PATIENT RESTING IN BED AT THIS TIME-AWAKE ALERT AND ORIENTED TO PERSON AND PLACE. O2 SAT IS 92% ON ROOM AIR. TELE MONITOR IN PLACE-LAST READING WAS PACED AT 60. IVF NS PATENT AND INFUSING VIA LEFT AC AT KVO RATE. BED ALARM IN PLACE FOR PATIENT SAFETY.ALL LIGHT IN REACH. WILL CONT TO MONITOR.
--- NOTE | 2022-03-14 23:30 | NUR ---
RESTING INBED WITH BED ALARM IN PLACE FOR PATIENT SAFETY. EYES ARE CLOSED AND RESPS ARE EVEN AND UNLABORED. IVF PATENT AND INFUSING AT KVO RATE. TELE MONITOR IN PLACE. CALL LIGHT IN REACH. WILL CONT TO MONITOR.
--- NOTE | 2022-03-15 00:10 | NUR ---
RECIEVED CALL FROM ER THAT PATIENT SAT WAS DOWN INTO THE 80'S. O2 AT 2LPM APPLIED VIA NASAL CANNULA APPLIED. BED ALARM IN PLACE FOR PATIENT SAFETY. CALL LIGHT IN REACH. WILL CONT TO MONITOR.
[2022-03-15 00:16] VITALS: BP 150/76
--- NOTE | 2022-03-15 03:30 | NUR ---
BED ALARM GOING OFF AND RESPONDED TO ROOM. ASSISTED PATIENT TO BSC TO VOID AND THEN BACK TO BED. TELE MONITOR IN PLACE. IVF PATENT AND INFUSING VIA LEFT AC SITE AT KVO RATE. O2 VIA NASAL CANNULA IN PLACE AT 2LPM. BED ALARM IN PLACE FOR PATIENT SAFETY. CALL LIGHT IN REACH WILL CONT TO MONITOR.
[2022-03-15 03:55] VITALS: BP 151/76
[2022-03-15 05:56] LABS: HEMATOCRIT 39.7 % (39.0-50.0); IMMATURE GRANULOCYTES 0.4 % (0.0-5.0); MEAN CELL VOLUME 85.4 fL CALC (80.0-100.0); MEAN CORPUSCULAR HGB 30.1 pG CALC (26.0-32.0); MEAN CORPUSCULAR HGB CONC 35.3 g/dL CAL (32.0-36.0); NEUT# 3.41 thou/uL (1.82-7.42); RED BLOOD COUNT 4.65 mill/uL (4.70-6.10); RED CELL DISTRI WIDTH 12.9 % (11.5-15.5)
[2022-03-15 06:06] LABS: INTERNATIONAL NORMALIZED RATIO 3.2 RATIO (0.7-1.3); PROTHROMBIN TIME 30.1 SECONDS (9.0-12.5)
[2022-03-15 06:40] VITALS: BP 137/62
--- NOTE | 2022-03-15 06:50 | NUR ---
RECEIVED REPORT FROM JASVIR VALLEJO.
--- NOTE | 2022-03-15 08:00 | NUR ---
PT SITTING ON BED: ALERT TO SELF ONLY. EVEN AND UNLABORED RESPIRATIONS; CLEAR UPPER LUNG SOUNDS, DIMINISHED LOWER LOBES. PT ON ESME. O2 SAT 92%. TELEMETRY IN PLACE. IV SITE HEALTHY AND PATENT. CAMERA MONITOR AND BED ALARM ACTIVE. SAFETY PRECAUTIONS IN PLACE WITH CALL LIGHT IN REACH.
[2022-03-15 09:09] VITALS: BP 124/53
[2022-03-15 10:30] VITALS: BP 109/55
[2022-03-15] MEDS ORDERED: WARFARIN SODIUM1 MG PO (11:47)
[2022-03-15] MEDS ORDERED: ALBUTEROL108 MCG/AC IN (11:48)
--- NOTE | 2022-03-15 12:15 | NUR ---
PT SITTING ON RECLINER. NO DISTRESS OR PAIN NOTED. TELEMETRY IN PLACE. IV HEALTHY AND PATENT INFUSING IV FLUIDS PER ORDER. PT'S BROTHER AT BEDSIDE. SAFETY PRECAUTIONS IN PLACE WITH CALL LIGHT IN REACH.
--- NOTE | 2022-03-15 15:26 | NUR ---
PT AND PT'S BROTHER EDUCATED ON DC INTRUCTIONS. IV REMOVED: #20G LEFT AC, CATHETER INTACT UPON REMOVAL, PT TOLERATED WELL. REMOVED TELEMETRY BOX, ER NOTIFIED OF SAME.
--- NOTE | 2022-03-15 15:39 | NUR ---
PT LEFT @ 1539. Discharge instructions given. Patient verbalizes understanding of same. Discharged in stable condition via Wheelchair to Home with staff. All belongings sent with pt.
== END 2022-03-15 15:44 | disposition home health service (06) | DRG 177 ==
LOC: ED 13:41 → ED-I 14:32 → ED 14:32 → ED-I 15:25 → ED 16:09 → MS2 16:10
PROVIDERS: Internal Medicine; Nurse Practitioner; ADMIT Internal Medicine; ATTEND Internal Medicine
DX: U07.1 COVID-19 (principal); J12.82 Pneumonia due to coronavirus disease 2019; J96.01 Acute respiratory failure with hypoxia; R78.81 Bacteremia; I10 Essential (primary) hypertension; I48.91 Unspecified atrial fibrillation; E78.00 Pure hypercholesterolemia, unspecified; F03.90 Unspecified dementia, unspecified severity, without behavioral disturbance, psychotic disturbance, mood disturbance, and anxiety; E87.6 Hypokalemia; N40.0 Benign prostatic hyperplasia without lower urinary tract symptoms; Z95.0 Presence of cardiac pacemaker; Z79.01 Long term (current) use of anticoagulants; Z99.3 Dependence on wheelchair; Z95.2 Presence of prosthetic heart valve
CPT/HCPCS: Q3014

== ENCOUNTER 2022-05-19 10:47 | Observation (INO) | payer OTHER, MEDICARE ==
[2022-05-19] VITALS (21 sets, daily range): BP systolic 104–143; BP diastolic 47–85
[~2022-05-19] VITALS: Ht 162.6 cm; Wt 63.0 kg
[~2022-05-19 10:47] MED LIST changes: +ALBUTEROL108 MCG/AC IN; +ALLERGY RELF10 M3 PO; +WARFARIN SODIU2.5 MG PO; +WARFARIN SODIUM1 MG PO
[2022-05-19] MEDS ORDERED: WARFARIN2 MG PO (11:01)
[2022-05-19 11:19] LABS: HEMATOCRIT 40.5 % (39.0-50.0); HEMOGLOBIN 12.8 g/dl (14.0-18.0); IMMATURE GRANULOCYTES 0.7 % (0.0-5.0); MEAN CORPUSCULAR HGB 29.7 pG CALC (26.0-32.0); MEAN CORPUSCULAR HGB CONC 31.6 g/dL CAL (32.0-36.0); NEUT# 5.18 thou/uL (1.82-7.42); RED BLOOD COUNT 4.31 mill/uL (4.70-6.10); RED CELL DISTRI WIDTH 13.5 % (11.5-15.5)
[2022-05-19 11:27] LABS: ALKALINE PHOSPHATASE 55 u/l (38-126); ANION GAP 15 (6-22 (CALC)); BILIRUBIN, TOTAL 0.4 mg/dL (0.0-1.4); BUN 17 mg/dL (8-23); BUN/CREATININE RATIO 14 (12-20 (CALC)); CARBON DIOXIDE 24 mmol/l (22-30); CHLORIDE 103 mmol/l (95-108); CREATININE 1.2 mg/dL (0.7-1.3); GFR FOR AFR.AMER. > 60 ML/MIN (>=60 (CALC)); GFR OTHER RACES 57 ML/MIN (>=60 (CALC)); POTASSIUM 4.4 mmol/l (3.5-5.1); SGOT/AST 33 u/l (19-48); SODIUM 138 mmol/l (137-146); TOTAL PROTEIN 6.6 g/dL (6.3-8.2)
[2022-05-19 11:33] LABS: ALBUMIN 3.7 g/dL (3.2-5.0)
[2022-05-19 11:40] LABS: INTERNATIONAL NORMALIZED RATIO 6.9 RATIO (0.7-1.3)
[2022-05-19 12:28] LABS: URINE BILIRUBIN - DIPSTICK NEGATIVE (NEGATIVE); URINE BLOOD DIPSTICK MODERATE (NEGATIVE); URINE COLOR YELLOW; URINE GLUCOSE - DIPSTICK NEGATIVE (NEGATIVE); URINE KETONE NEGATIVE (NEGATIVE); URINE PROTEIN - DIPSTICK NEGATIVE (NEG-TRACE); URINE SPECIFIC GRAVITY 1.015; URINE UROBILINOGEN - DIPSTICK 0.2 E.U./dL (0.2)
[2022-05-19 12:32] LABS: URINE LEUK ESTERASE LARGE (NEGATIVE); URINE NITRITE - DIPSTICK POSITIVE (Negative)
[2022-05-19 12:34] LABS: URINE BACTERIA MANY hpf; URINE EPITHELIAL CELLS FEW EPI/hpf (0-FEW); URINE WBC 50-100 WBC/hpf (0-5)
[2022-05-20] VITALS (7 sets, daily range): BP systolic 115–159; BP diastolic 54–65
[2022-05-20 06:03] LABS: HEMATOCRIT 36.9 % (39.0-50.0); HEMOGLOBIN 12.4 g/dl (14.0-18.0); IMMATURE GRANULOCYTES 0.7 % (0.0-5.0); MEAN CELL VOLUME 89.6 fL CALC (80.0-100.0); MEAN CORPUSCULAR HGB 30.1 pG CALC (26.0-32.0); MEAN CORPUSCULAR HGB CONC 33.6 g/dL CAL (32.0-36.0); NEUT# 5.78 thou/uL (1.82-7.42); RED BLOOD COUNT 4.12 mill/uL (4.70-6.10); RED CELL DISTRI WIDTH 13.5 % (11.5-15.5)
[2022-05-20 06:27] LABS: ALBUMIN 3.3 g/dL (3.2-5.0); ALKALINE PHOSPHATASE 70 u/l (38-126); ANION GAP 14 (6-22 (CALC)); BILIRUBIN, TOTAL 0.4 mg/dL (0.0-1.4); BUN 16 mg/dL (8-23); BUN/CREATININE RATIO 12 (12-20 (CALC)); CARBON DIOXIDE 24 mmol/l (22-30); CHLORIDE 105 mmol/l (95-108); CREATININE 1.3 mg/dL (0.7-1.3); GFR FOR AFR.AMER. > 60 ML/MIN (>=60 (CALC)); GFR OTHER RACES 52 ML/MIN (>=60 (CALC)); POTASSIUM 4.1 mmol/l (3.5-5.1); SGOT/AST 25 u/l (19-48); SODIUM 139 mmol/l (137-146)
[2022-05-20 06:43] LABS: INTERNATIONAL NORMALIZED RATIO 7.2 RATIO (0.7-1.3); PROTHROMBIN TIME 66.2 SECONDS (9.0-12.5)
[2022-05-21 00:38] VITALS: BP 139/68
[2022-05-21 04:21] VITALS: BP 170/82
[2022-05-21 05:12] LABS: HEMOGLOBIN 12.4 g/dl (14.0-18.0); IMMATURE GRANULOCYTES 0.8 % (0.0-5.0); MEAN CELL VOLUME 92.5 fL CALC (80.0-100.0); MEAN CORPUSCULAR HGB 30.2 pG CALC (26.0-32.0); MEAN CORPUSCULAR HGB CONC 32.6 g/dL CAL (32.0-36.0); NEUT# 4.91 thou/uL (1.82-7.42); RED BLOOD COUNT 4.11 mill/uL (4.70-6.10); RED CELL DISTRI WIDTH 13.4 % (11.5-15.5)
[2022-05-21 05:34] LABS: ALBUMIN 3.2 g/dL (3.2-5.0); ALKALINE PHOSPHATASE 61 u/l (38-126); ANION GAP 12 (6-22 (CALC)); BUN 16 mg/dL (8-23); BUN/CREATININE RATIO 13 (12-20 (CALC)); CARBON DIOXIDE 28 mmol/l (22-30); CHLORIDE 103 mmol/l (95-108); CREATININE 1.2 mg/dL (0.7-1.3); GFR FOR AFR.AMER. > 60 ML/MIN (>=60 (CALC)); GFR OTHER RACES 57 ML/MIN (>=60 (CALC)); POTASSIUM 4.1 mmol/l (3.5-5.1); SGOT/AST 24 u/l (19-48); SODIUM 139 mmol/l (137-146); TOTAL PROTEIN 5.9 g/dL (6.3-8.2)
[2022-05-21 05:35] LABS: BILIRUBIN, TOTAL 0.8 mg/dL (0.0-1.4)
[2022-05-21 05:54] LABS: INTERNATIONAL NORMALIZED RATIO 1.6 RATIO (0.7-1.3); PROTHROMBIN TIME 15.3 SECONDS (9.0-12.5)
[2022-05-21 10:28] VITALS: BP 121/60
[2022-05-21 14:33] VITALS: BP 140/78
[2022-05-21 19:40] VITALS: BP 154/79
[2022-05-22 01:08] VITALS: BP 159/80
[2022-05-22 05:22] LABS: HEMATOCRIT 40.5 % (39.0-50.0); IMMATURE GRANULOCYTES 0.4 % (0.0-5.0); MEAN CELL VOLUME 92.3 fL CALC (80.0-100.0); MEAN CORPUSCULAR HGB 29.6 pG CALC (26.0-32.0); MEAN CORPUSCULAR HGB CONC 32.1 g/dL CAL (32.0-36.0); NEUT# 5.57 thou/uL (1.82-7.42); RED BLOOD COUNT 4.39 mill/uL (4.70-6.10); RED CELL DISTRI WIDTH 13.3 % (11.5-15.5)
[2022-05-22 05:43] LABS: INTERNATIONAL NORMALIZED RATIO 1.2 RATIO (0.7-1.3); PROTHROMBIN TIME 11.8 SECONDS (9.0-12.5)
[2022-05-22 06:34] VITALS: BP 155/73
[2022-05-22 09:41] LABS: INTERNATIONAL NORMALIZED RATIO 1.2 RATIO (0.7-1.3); PROTHROMBIN TIME 11.7 SECONDS (9.0-12.5)
[2022-05-22] MEDS ORDERED: OMNICEF300 MG PO (10:43)
[2022-05-22 10:49] VITALS: BP 122/58
== END 2022-05-22 13:19 | disposition home health service (06) | DRG 948 ==
LOC: ED 10:47 → ED-I 11:32 → ED 13:42 → MS2 13:43
PROVIDERS: Family Medicine; Nurse Practitioner; ADMIT Internal Medicine; ATTEND Internal Medicine
DX: R79.1 Abnormal coagulation profile (principal); N39.0 Urinary tract infection, site not specified; T45.515A Adverse effect of anticoagulants, initial encounter; I12.9 Hypertensive chronic kidney disease with stage 1 through stage 4 chronic kidney disease, or unspecified chronic kidney disease; N18.9 Chronic kidney disease, unspecified; I48.91 Unspecified atrial fibrillation; F03.90 Unspecified dementia, unspecified severity, without behavioral disturbance, psychotic disturbance, mood disturbance, and anxiety; E78.00 Pure hypercholesterolemia, unspecified; N40.0 Benign prostatic hyperplasia without lower urinary tract symptoms; B96.20 Unspecified Escherichia coli [E. coli] as the cause of diseases classified elsewhere; Z95.1 Presence of aortocoronary bypass graft; Z95.0 Presence of cardiac pacemaker; Z79.01 Long term (current) use of anticoagulants; Z99.3 Dependence on wheelchair; Z95.2 Presence of prosthetic heart valve; Z20.822 Contact with and (suspected) exposure to COVID-19
CPT/HCPCS: J1650